=== PATIENT | female | born 1970 | race Caucasian/White ===

== ENCOUNTER → 2016-08-08 | Outpatient (CLI) | payer OTHER | LOC: FIMAGING 15:07 | PROVIDERS: ATTEND Internal Medicine Critical Care Medicine | DX: R91.8 Other nonspecific abnormal finding of lung field (principal) ==

== ENCOUNTER → 2016-12-12 | Outpatient (CLI) | payer OTHER ==
[~2016-12-12] MED LIST: IOPAMIDOL (ISOVUE-300) 100 ML BTL ONE
== END ==
LOC: FIMAGING 09:52
PROVIDERS: ATTEND Internal Medicine Critical Care Medicine
DX: R91.1 Solitary pulmonary nodule (principal)
CPT/HCPCS: 71260; Q9967

== ENCOUNTER 2016-12-19 05:48 | Day surgery (SDC) | payer OTHER ==
[2016-12-19 07:48] LABS: HEMATOCRIT 42.9 % (38.0-47.0)
[2016-12-19 07:58] LABS: INR 0.92 (0.83-1.16); PROTIME(PATIENT) 12.3 SEC (12.0-15.0)
[2016-12-19] MEDS ORDERED: NALOXONE HCL 0.4 MG/ML INJ ONE (08:18)
[2016-12-19] MEDS ORDERED: FLUMAZENIL 0.5 MG/5 ML MDV IVP ONE (08:18)
[2016-12-19] MEDS ORDERED: fentaNYL 100 MCG/2 ML INJ ONE (08:19)
[2016-12-19] MEDS ORDERED: MIDAZOLAM 2 MG/2 ML VIAL ONE (08:19)
[2016-12-19 12:33] VITALS: BP 112/87; RESP 13
[2016-12-19 12:35] VITALS: PULSE 62; O2SAT 95
== END 2016-12-19 13:30 | disposition home or self-care (01) ==
LOC: FIMAGING 05:48
PROVIDERS: ATTEND Radiology Diagnostic Radiology
PROC: 0B9 Respiratory System, Drainage (ICD-10-PCS; principal; 2016-12-19 10:05)
PROC: BB271ZZ Computerized Tomography (CT Scan) of Right Tracheobronchial Tree using Low Osmolar Contrast (ICD-10-PCS; principal; 2016-12-19 10:05)
PROC: 0BBF3ZX Excision of Right Lower Lung Lobe, Percutaneous Approach, Diagnostic (ICD-10-PCS; principal; 2016-12-19 10:05)
DX: R91.8 Other nonspecific abnormal finding of lung field (principal)
CPT/HCPCS: J2250; J2310; J3010

== ENCOUNTER → 2017-06-06 | Outpatient (CLI) | payer OTHER | LOC: FIMAGING 15:29 | PROVIDERS: ATTEND Internal Medicine Critical Care Medicine | DX: R91.1 Solitary pulmonary nodule (principal); R06.00 Dyspnea, unspecified ==

== ENCOUNTER → 2017-06-10 | Outpatient (CLI) | payer OTHER | LOC: FIMAGING 15:15 | PROVIDERS: ATTEND Internal Medicine | DX: Z12.31 Encounter for screening mammogram for malignant neoplasm of breast (principal) | CPT/HCPCS: G0202 ==

== ENCOUNTER → 2017-07-11 | Outpatient (CLI) | payer OTHER | LOC: BHFA 15:00 | PROVIDERS: ATTEND Internal Medicine Cardiovascular Disease | DX: R06.09 Other forms of dyspnea (principal) ==

== ENCOUNTER → 2017-07-31 | Outpatient (CLI) | payer OTHER ==
[~2017-07-31] MED LIST changes: +IOPAMIDOL (ISOVUE 370) 100 ML BTL IV ONE; -IOPAMIDOL (ISOVUE-300) 100 ML BTL ONE
== END ==
LOC: FIMAGING 15:53
PROVIDERS: ATTEND Internal Medicine Critical Care Medicine
DX: R91.1 Solitary pulmonary nodule (principal); J98.4 Other disorders of lung; J90 Pleural effusion, not elsewhere classified
CPT/HCPCS: 71275; Q9967

== ENCOUNTER → 2017-08-07 | Outpatient (CLI) | payer OTHER | LOC: BHFA 14:00 | PROVIDERS: ATTEND Internal Medicine Cardiovascular Disease | DX: R06.00 Dyspnea, unspecified (principal) ==

== ENCOUNTER 2017-08-26 07:26 | Day surgery (SDC) | payer OTHER ==
[2017-08-26] MEDS ORDERED: FAMOTIDINE 20 MG TAB PO ONE (07:31)
[2017-08-26] MEDS ORDERED: NS 1,000 ML IV ONE (07:31)
[2017-08-26] MEDS ORDERED: ASPIRIN EC 325 MG TAB PO ONE ×2 (07:31→07:49)
[2017-08-26] MEDS ORDERED: diphenhydrAMINE 25 MG CAP PO ONE ×2 (07:31→07:48)
[2017-08-26] MEDS ORDERED: DIAZEPAM 5 MG TAB PO ONE (07:31)
[2017-08-26] MEDS ORDERED: FAMOTIDINE 20 MG TAB ONE (07:49)
[2017-08-26] MEDS ORDERED: DIAZEPAM 5 MG TAB ONE (07:49)
--- NOTE | 2017-08-26 07:51 | CPEKG ---
Heart Rate: 86 RR Interval: 698 P-R Interval: 180 QRSD Interval: 82 QT Interval: 404 QTC Interval: 484 P [place]: 57 QRS [place]: 49 T Wave [place]: 95 EKG Severity - ABNORMAL ECG - EKG Impression: SINUS RHYTHM EKG Impression: NONSPECIFIC T ABNORMALITIES, ANT-LAT LEADS Electronically Signed By: Fransisco Botello 27-Aug-2017 12:15:57
[2017-08-26 08:11] LABS: PLATELET COUNT 360 10^3/uL (150-400)
[2017-08-26 08:20] LABS: INR 1.03 (0.83-1.16); PROTIME(PATIENT) 13.7 SEC (12.0-15.0)
--- NOTE | 2017-08-26 08:34 | PDPROPOC ---
Sedation Plan of Care Sedation Plan of Care: vital signs stable, mental status noted, patient educated of risks, benefits, alternatives, patient can tolerate sedation ASA Classification: ASA 4 Planned drugs: fentanyl, midazolam Mallampati Score: Class 3 Mallampati Reference Image: Patient passed 3-3-2 rule?: No (patient with pulmonary hypertension needs right and left heart cath)
--- NOTE | 2017-08-26 08:34 | PDHPUP ---
History & Physical Update H&P update statement: This history and physical update is based on an assessment of the patient which was completed after admission or registration (within 24 hours), but prior to the surgery/procedure. H&P update: H&P reviewed & patient examined (Please note recent echo revealed severe and new pulmonary hypertension...needs right and left heart cath with shunt run), no change in patient's condition since H&P completed
[2017-08-26] MEDS ORDERED: ADENOSINE 90 MG/30 ML VIAL IV ONE (08:36)
[2017-08-26] MEDS ORDERED: fentaNYL 100 MCG/2 ML INJ ONE (08:39)
[2017-08-26] MEDS ORDERED: LIDOCAINE 1% 300 MG/30 ML SDV ONE ×2 (08:39→09:19)
[2017-08-26] MEDS ORDERED: IOPAMIDOL (ISOVUE-370) 150 ML BTL IV ONE (08:40)
[2017-08-26] MEDS ORDERED: MIDAZOLAM 2 MG/2 ML VIAL ONE (08:40)
--- NOTE | 2017-08-26 09:57 | PDDXCAT ---
Diagnostic Cath Note - . Date: 08/26/17 Pierogi Maker: Madelaine Indication: other (Patient with severe pulmonary hypertension) - Procedure Access: right groin Procedure: left heart catheterization, right heart catheterization - Materials Left Heart Cath size: 5F Left Heart Cath materials: standard multipack (JL4, JR4, pigtail) Right Heart Cath size: 7F Right Heart Cath materials: PWP catheter - Findings-Left Heart Catheterization LM: 5mm in size. It trifucates in an LAD, ramus and circumflex system. LAD: The LAD is 3mm in size. LCX: The LCX is 2mm in size. DAWSON III flow throughout. RCA: It is 3mm in size and dominant. It gives rise to the posterior descending and PLV branch. DAWSON III flow. Ramus: The ramus is 2.5mm in size. There is no flow limiting obstruction. DAWSON III flow. EDP: The LVEDP is 16mmHg. LVEF: The EF is slightly below normal at 55%. Wall motion: There is no segmental wall motion abnormalities identified. - Findings-Right Heart Catheterization RA: Pressure: 14/13, mean: 11 mmHg RV: Pressure: 77/6, end diastolic pressure is 16mmHg PA: Pressure: 81/34, The original PA saturation was 72.1%, with drug therapy it increased to 84.8%. There is a left to right shunt. PAOP: 12mmHg. AO: 96.4% CO: 5.6 L/min CI: 2.7 L/min/m2 Complications: None. Estimated blood loss: <50ml Closure method: Angioseal Assessment: The patient has a right dominant coronary system that is free of flow limiting coronary disease. The patient has severe pulmonary hypertension, which was unresponsive to a ramped dose Adenosine challenge. That is her mean pulmonary pressure went up from a mean PA pressure of 47mmHg to 50, 51,and then 55mmHg with increasing doses of Adenosine. PA systolic went down slightly from the low 80's to high 70's. A definitive cause for the Pulmonary hypertension is not identified on the basis of this study. I reviewed the patient's CT pulmonary angio, which was negative for pulmonary embolus but positive for air trapping, focal mass that was previously biopsied, and a ground glass appearance to the pulmonary tissue. Plan: Consider ARNOLD with bubble study to evaluate the intraatrial septum and to rule out a large ASD. Consider Cardiac MRI to evaluate the size of intraatrial communication and to rule out anomalous pulmonary venous return. Plan for pulmonary hypertension expert consultation and review of cath data. Intervention: None. Patient Problems: Problems Problem Status Onset Pulmonary hypertension Acute
[2017-08-26] MEDS ORDERED: HYDROCODONE/APAP 5/325 TAB PO PRN (10:35)
[2017-08-26] MEDS ORDERED: OXYCODONE/APAP 5/325 TAB PO PRN (10:35)
[2017-08-26] MEDS ORDERED: ONDANSETRON 4 MG/2 ML VIAL IVP PRN (10:35)
[2017-08-26] MEDS ORDERED: NITROGLYCERIN 0.4 MG BTL SL PRN (10:35)
[2017-08-26] MEDS ORDERED: ATROPINE SULFATE 1 MG/10 ML SYR IVP PRN (10:35)
== END 2017-08-26 14:52 | disposition home or self-care (01) ==
LOC: FCATH 07:26
PROVIDERS: ATTEND Internal Medicine Cardiovascular Disease
PROC: B2111ZZ Fluoroscopy of Multiple Coronary Arteries using Low Osmolar Contrast (ICD-10-PCS; principal; 2017-08-26)
PROC: 4A023N8 Measurement of Cardiac Sampling and Pressure, Bilateral, Percutaneous Approach (ICD-10-PCS; principal; 2017-08-26)
PROC: B2151ZZ Fluoroscopy of Left Heart using Low Osmolar Contrast (ICD-10-PCS; principal; 2017-08-26)
DX: I25.10 Atherosclerotic heart disease of native coronary artery without angina pectoris (principal); I27.20 Pulmonary hypertension, unspecified; E66.3 Overweight; F25.8 Other schizoaffective disorders; E03.9 Hypothyroidism, unspecified; R06.02 Shortness of breath
CPT/HCPCS: C1760; J0153; J1644; J2250; J3010; Q9967

== ENCOUNTER 2017-09-04 10:09 | Day surgery (SDC) | payer OTHER ==
--- NOTE | 2017-09-04 09:43 | PDPROPOC ---
Sedation Plan of Care Sedation Plan of Care: vital signs stable, mental status noted, patient educated of risks, benefits, alternatives, patient can tolerate sedation ASA Classification: ASA 3 Planned drugs: fentanyl, midazolam Mallampati Score: Class 3 Mallampati Reference Image: Patient passed 3-3-2 rule?: Yes
--- NOTE | 2017-09-04 09:43 | PDHPUP ---
History & Physical Update H&P update statement: This history and physical update is based on an assessment of the patient which was completed after admission or registration (within 24 hours), but prior to the surgery/procedure. H&P update: H&P reviewed & patient examined, no change in patient's condition since H&P completed
[2017-09-04] MEDS ORDERED: NS 500 ML IV ONE (10:15)
[2017-09-04] MEDS ORDERED: MIDAZOLAM 2 MG/2 ML VIAL IVP ONE (10:15)
[2017-09-04] MEDS ORDERED: fentaNYL 100 MCG/2 ML INJ IVP ONE (10:15)
[2017-09-04] MEDS ORDERED: BENZOCAINE UNIT DOSE SPRAY HURRICAINE MM ONE (10:15)
== END 2017-09-04 13:30 | disposition home or self-care (01) ==
LOC: FCATH 10:09
PROVIDERS: ATTEND Internal Medicine Cardiovascular Disease
PROC: B246ZZ4 Ultrasonography of Right and Left Heart, Transesophageal (ICD-10-PCS; principal; 2017-09-04)
DX: I27.20 Pulmonary hypertension, unspecified (principal); E03.9 Hypothyroidism, unspecified; F25.8 Other schizoaffective disorders; E66.3 Overweight
CPT/HCPCS: J2250; J3010

== ENCOUNTER → 2017-10-07 | Outpatient (CLI) | payer OTHER | LOC: FIMAGING 14:51 | PROVIDERS: ATTEND Internal Medicine Critical Care Medicine | DX: J98.4 Other disorders of lung (principal); R91.1 Solitary pulmonary nodule; I27.29 Other secondary pulmonary hypertension | CPT/HCPCS: 83516-90; 83520-90 ==

== ENCOUNTER 2017-10-23 09:48 | Day surgery (SDC) | payer OTHER ==
[2017-10-23] MEDS ORDERED: FLUMAZENIL 0.5 MG/5 ML MDV IVP ONE (10:10)
[2017-10-23] MEDS ORDERED: ONDANSETRON 4 MG/2 ML VIAL ONE (10:10)
[2017-10-23] MEDS ORDERED: NALOXONE HCL 0.4 MG/ML INJ ONE (10:10)
[2017-10-23] MEDS ORDERED: MIDAZOLAM 2 MG/2 ML VIAL ONE (10:11)
[2017-10-23] MEDS ORDERED: fentaNYL 100 MCG/2 ML INJ ONE (10:11)
[2017-10-23] MEDS ORDERED: PROTAMINE SULFATE 50 MG/5 ML VIAL IVP PRN (10:31)
[2017-10-23] MEDS ORDERED: MIDAZOLAM 2 MG/2 ML VIAL IVP PRN (10:31)
[2017-10-23] MEDS ORDERED: NALOXONE HCL 0.4 MG/ML INJ IVP PRN (10:31)
[2017-10-23] MEDS ORDERED: fentaNYL 100 MCG/2 ML INJ IVP PRN (10:31)
[2017-10-23] MEDS ORDERED: MEPERIDINE 25 MG/ML SYR IVP PRN (10:31)
[2017-10-23] MEDS ORDERED: FLUMAZENIL 0.5 MG/5 ML MDV IVP PRN (10:31)
[2017-10-23] MEDS ORDERED: NS 1,000 ML IV SCH (10:45)
[2017-10-23 10:46] LABS: INR 0.99 (0.83-1.16); PROTIME(PATIENT) 13.3 SEC (12.0-15.0)
--- NOTE | 2017-10-23 11:28 | PDPROPOC ---
Sedation Plan of Care Sedation Plan of Care: vital signs stable, mental status noted, patient educated of risks, benefits, alternatives, patient can tolerate sedation ASA Classification: ASA 1 Planned drugs: fentanyl, midazolam Mallampati Score: Class 2 Mallampati Reference Image: Patient passed 3-3-2 rule?: Yes
[2017-10-23 15:45] VITALS: BP 109/81
== END 2017-10-23 15:45 | disposition home or self-care (01) ==
LOC: FIMAGING 09:48
PROVIDERS: ATTEND Internal Medicine Critical Care Medicine
PROC: 0BBF3ZX Excision of Right Lower Lung Lobe, Percutaneous Approach, Diagnostic (ICD-10-PCS; principal; 2017-10-23 13:09)
DX: J84.10 Pulmonary fibrosis, unspecified (principal); I27.20 Pulmonary hypertension, unspecified; R09.02 Hypoxemia; R06.02 Shortness of breath; Q21.1 Atrial septal defect; M35.9 Systemic involvement of connective tissue, unspecified
CPT/HCPCS: J2250; J2310; J2405; J3010

== ENCOUNTER 2017-10-24 10:57 | Emergency (ER) | payer OTHER ==
[2017-10-24] MEDS ORDERED: HYDROCODONE/APAP 5/325 TAB PO ONE (12:35)
--- NOTE | 2017-10-24 12:39 | EDPHY ---
HPI/HX/ROS/PE/MDM Narrative: CHIEF COMPLAINT: Chest wall pain HPI: The patient is a 47-year-old female who underwent a biopsy of a lung mass yesterday. She called in to the Radiology Department to complain of pain at the biopsy site and was requesting pain medicine, and was referred to the ER for a chest x-ray. She denies fever, fall or trauma. She states the pain occurred after coughing episode. REVIEW OF SYSTEMS: Aside from elements discussed in the HPI, a comprehensive 10-point review of systems was reviewed and is negative. PMH: Includes mental health issues, pulmonary hypertension, history of lung mass SOCIAL HISTORY: Denies alcohol or drug abuse. PHYSICAL EXAM: General:Patient is alert, in no acute distress. ENT:Eyes are normal to inspection. ENT inspection normal. Neck: Normal inspection. Full range of motion. Respiratory:No respiratory distress. Breath sounds normal bilaterally. Lung biopsy site located on her right posterior chest peers clean dry and intact with no signs of infection. There is some mild tenderness around this area. Extremities: Normal appearance. Full range of motion. Neuro: Oriented x3. Normal motor function. Normal sensory function. MDM: This patient presents with chest wall pain at the site of her recent lung biopsy. We performed a chest x-ray at the request of the radiology department and this was negative for pneumothorax. The patient's primary concern appears to be obtaining pain medication. I explained to her that I cannot write her a prescription for further narcotics but would be happy to give her a dose here. She will follow up with her doctor for further testing. I considered PE, but the patient recently underwent a full CT scan of her lungs and is having pain only at the site were along needle was inserted into her chest. A D-dimer would obviously be positive, so I do not think this will as significantly to her care. The patient was noted to be mildly hypoxic. We spoke to the nurse that took care of her yesterday and he stated this was present at that time as well. The patient declined further workup. - Data Points Imaging Results: Imaging Impressions Chest X-Ray 10/24/17 11:26 Impression: No obvious post biopsy abnormality identified considering decreased inspiratory phase. General Time Seen by Provider: 10/24/17 11:31 Initial Vital Signs: Initial Vital Signs Temperature (C) 36.6 C 10/24/17 10:58 Heart Rate 112 H 10/24/17 10:58 Respiratory Rate 20 10/24/17 10:58 Blood Pressure 113/68 10/24/17 10:58 O2 Sat (%) 86 L 10/24/17 10:58 O2 Delivery Mode Room Air O2 (L/minute) 3 Allergies/Adverse Reactions: No Known Allergies Allergy (Verified 10/24/17 10:58) Home Medications: Medication Instructions Recorded Escitalopram Oxalate [Lexapro] 20 mg PO HS 12/18/16 LORazepam [Ativan (*)] 3 mg PO TID PRN 12/18/16 Topiramate [Topamax 100MG (*)] 200 mg PO HS 12/18/16 Ziprasidone HCl [Geodon] 120 mg PO HS 12/18/16 cloZAPine [Clozaril (*)] 500 mg PO HS 12/18/16 metFORMIN HCL [Glucophage 1000 mg] 2,000 mg PO HS 12/18/16 Docusate Sodium [Colace 100 MG (*)] 100 mg PO HS 08/19/17 Ferrous Sulfate [Ferrous Sulf 325 325 mg PO HS 08/19/17 MG (*)] Herbals/Supplements -Info Only 1 ea PO DAILY 08/19/17 Norethindrone-Ethinyl Estrad 1 each PO HS 08/19/17 [Necon 7-7-7-28 Tablet] Departure - Departure Disposition: Home, Routine, Self-Care Clinical Impression: Chest wall pain Condition: Good Instructions: Chest Wall Pain (ED) Additional Instructions: Follow-up with your primary doctor within 72 hours. Return to the Emergency Department for fever, chest pain, shortness of breath, increasing pain or other worsening of condition. Referrals: Viridiana Roberts MD [Primary Care Provider] - As per Instructions
[2017-10-24 12:43] VITALS: BP 102/52
== END 2017-10-24 12:52 | disposition home or self-care (01) ==
DX: G89.18 Other acute postprocedural pain (principal); R07.89 Other chest pain

== ENCOUNTER → 2017-10-27 | Outpatient (CLI) | payer OTHER | LOC: FIMAGING 14:01 | PROVIDERS: ATTEND Internal Medicine Pulmonary Disease | DX: J90 Pleural effusion, not elsewhere classified (principal) ==